=== PATIENT | female | born 1935 | race Caucasian/White ===

== ENCOUNTER 2017-09-03 01:41 | Emergency (ER) | payer MEDICARE, BC ==
[~2017-09-03] VITALS: Ht 157.5 cm; Wt 56.8 kg
[~2017-09-03 01:41] MED LIST: AMLO5TAB16 PO; CALC-988 PO; CARV-49 PO; CHOL100010 PO; DOCU-28 PO; HYDR-569 PO; LACT1CAP65 PO; OMEG1CAP21 PO; SIME80TA14 PO; THY60T PO; [UNRECOGNIZED DRUG - CODE] PO
[2017-09-03] MEDS ORDERED: ondansetron/PF 4mg/2ml inj IV ONE (02:00)
[2017-09-03] MEDS ORDERED: HYDROmorphone 1 mg/ml syringe IV PRN (02:00)
[2017-09-03] MEDS ORDERED: normal saline 1000ML IV soln IVB ONE (02:00)
[2017-09-03] MEDS ORDERED: HYDROmorphone inj. 0.5 MG/0.5 ML DISP.SYRIN ONE (02:32)
[2017-09-03 02:37] LABS: BASOPHILS % (AUTO) 0.3 % (0-1); EOSINOPHILS # (AUTO) 0.1 X10'3 (0-0.9); HEMATOCRIT 30.2 % (35.0-45.0); HEMOGLOBIN 10.6 g/dl (12.0-16.0); LYMPHOCYTES # (AUTO) 0.8 X10'3 (1.1-4.8); LYMPHOCYTES % (AUTO) 24.5 % (21-51); MEAN CORPUSCULAR HEMOGLOBIN 32.7 PG (27.0-31.0); MEAN CORPUSCULAR VOLUME 93.3 FL (78-98); MEAN PLATELET VOLUME 6.8 FL (7.4-10.4); MONOCYTES # (AUTO) 0.3 X10'3 (0-0.9); NEUTROPHILS # (AUTO) 2.2 X10'3 (1.8-7.7); NEUTROPHILS % (AUTO) 61.2 % (42-75); PLATELET COUNT 151 X10'3 (140-440); RED BLOOD COUNT 3.23 X10'6 (4.20-5.60); WHITE BLOOD COUNT 3.4 X10'3 (4.5-11.0)
[2017-09-03 02:48] LABS: INR 1.1 INR; PARTIAL THROMBOPLASTIN TIME 27 SECONDS (22-32); PROTHROMBIN TIME 11.1 SECONDS (9.0-12.0)
[2017-09-03 02:50] LABS: ALANINE AMINOTRANSFERASE 19 U/L (12-78); ALBUMIN 3.4 G/DL (3.4-5.0); ALKALINE PHOSPHATASE 75 IU/L (46-116); ANION GAP 9 (8-16); CHLORIDE 106 MMOL/L (99-107); LIPASE 287 U/L (73-393); POTASSIUM 4.1 MMOL/L (3.5-5.1); SODIUM 140 MMOL/L (135-145); TOTAL CARBON DIOXIDE 25.2 MMOL/L (24-32); eGFR 47 ML/MIN
[2017-09-03 02:51] LABS: CLARITY,URINE CLEAR (Clear); COLOR,URINE STRAW (Yellow); GLUCOSE, URINE NEGATIVE (Neg); KETONES,URINE NEGATIVE (Neg); LEUKOCYTE ESTERASE ,URINE TRACE (Neg); NITRITES, URINE NEGATIVE (Neg); OCCULT BLOOD,URINE NEGATIVE (Neg); PROTEIN,URINE NEGATIVE (Neg); UROBILINOGEN,URINE 0.2 E.U/dL (0.2-1.0)
[2017-09-03 03:01] LABS: UA COLLECTION TYPE CLN CATCH MIDSTREAM
[2017-09-03 03:08] LABS: SQUAMOUS EPITHELIAL CELL,UR FEW /LPF (FEW)
[2017-09-03 03:08] LABS: ALBUMIN/GLOBULIN RATIO 0.6 (1.1-1.5); BILIRUBIN,TOTAL 0.4 MG/DL (0.1-1.0); BLOOD UREA NITROGEN 24 MG/DL (7-18); BUN/CREATININE RATIO 21.8 (6.6-38.0); GLUCOSE 112 MG/DL (70-104); TOTAL PROTEIN 9.3 G/DL (6.4-8.2)
[2017-09-03 03:09] LABS: ASPARTATE AMINO TRANSFERASE 18 U/L (10-37)
[2017-09-03 03:09] LABS: BACTERIA,URINE FEW /HPF (Neg); RBC,URINE 0-2 /HPF (0-2); WBC,URINE 0-4 /HPF (0-4)
[2017-09-03] MEDS ORDERED: VALA10002 PO (03:20)
[2017-09-03] MEDS ORDERED: HYDR-569 PO (03:20)
[2017-09-03 03:22] LABS: CALCIUM 9.4 MG/DL (8.5-10.1)
[2017-09-03 04:16] VITALS: BP 130/60
== END 2017-09-03 04:17 | disposition home or self-care (01) ==
LOC: ER 01:41
DX: R10.32 Left lower quadrant pain (principal); R14.0 Abdominal distension (gaseous); B02.9 Zoster without complications; I11.0 Hypertensive heart disease with heart failure; I50.9 Heart failure, unspecified; G89.29 Other chronic pain; M54.9 Dorsalgia, unspecified; Z88.0 Allergy status to penicillin; Z88.1 Allergy status to other antibiotic agents; Z88.5 Allergy status to narcotic agent
CPT/HCPCS: 36415; 74176; 80053; 81001; 83690; 85025; 85610; 85730; 87088; 96361; 96374; 96375; 99285; J1170; J2405; J7030

== ENCOUNTER 2018-07-13 08:05 | Day surgery (SDC) | payer MEDICARE, BC ==
[~2018-07-13] VITALS: Ht 157.5 cm; Wt 52.9 kg
[~2018-07-13 08:05] MED LIST changes: +HYDR-4383 PO; -HYDR-569 PO; +ONDA8TAB9 PO; +VALA10002 PO
[2018-07-13 08:20] VITALS: BP 126/47
[2018-07-13] MEDS ORDERED: CARV-50 PO (08:34)
[2018-07-13] MEDS ORDERED: AMLO5TAB PO (08:34)
[2018-07-13] MEDS ORDERED: normal saline 1000ml 1,000 ML IV PRN (08:35)
[2018-07-13] MEDS ORDERED: LIDOcaine 1% 30ml preserv. free vial SQ ONE (09:00)
[2018-07-13 09:25] VITALS: BP 125/56
[2018-07-13 09:30] VITALS: BP 120/54
== END 2018-07-13 09:45 | disposition home or self-care (01) ==
LOC: SSTAY O 08:05
PROVIDERS: ATTEND Radiology Diagnostic Radiology
DX: R14.0 Abdominal distension (gaseous) (principal); I10 Essential (primary) hypertension; G89.29 Other chronic pain; I49.8 Other specified cardiac arrhythmias; M06.9 Rheumatoid arthritis, unspecified; E03.9 Hypothyroidism, unspecified; Z87.19 Personal history of other diseases of the digestive system; Z86.69 Personal history of other diseases of the nervous system and sense organs; Z86.73 Personal history of transient ischemic attack (TIA), and cerebral infarction without residual deficits; Z86.74 Personal history of sudden cardiac arrest; Z87.891 Personal history of nicotine dependence; Z87.01 Personal history of pneumonia (recurrent); Z93.3 Colostomy status; Z88.0 Allergy status to penicillin; Z88.7 Allergy status to serum and vaccine; Z88.5 Allergy status to narcotic agent; Z79.891 Long term (current) use of opiate analgesic; Z86.19 Personal history of other infectious and parasitic diseases; Z90.49 Acquired absence of other specified parts of digestive tract; Z90.711 Acquired absence of uterus with remaining cervical stump; Z98.890 Other specified postprocedural states; Z79.899 Other long term (current) drug therapy; Z82.49 Family history of ischemic heart disease and other diseases of the circulatory system; Z83.3 Family history of diabetes mellitus
CPT/HCPCS: 76705; J3490; J7030

== ENCOUNTER 2018-08-21 15:14 | Inpatient (IN) | payer MEDICARE, BC | END 2018-08-28 18:40 | disposition home or self-care (01) | LOC: ER 15:14 → ED HOLD 17:56 → SUR 3N 22:18 | DX: A04.9 Bacterial intestinal infection, unspecified (principal); E43 Unspecified severe protein-calorie malnutrition; K57.32 Diverticulitis of large intestine without perforation or abscess without bleeding; G93.40 Encephalopathy, unspecified; D64.9 Anemia, unspecified; I25.10 Atherosclerotic heart disease of native coronary artery without angina pectoris; E03.9 Hypothyroidism, unspecified ==